=== PATIENT | male | born 1960 | race African-American/Black ===

== ENCOUNTER 2020-12-07 15:59 | Outpatient (CLI) | payer MEDICARE, MEDICAID | END 2020-12-07 16:00 | disposition home or self-care (01) | LOC: CSHWCC 15:59 | PROVIDERS: ATTEND Nurse Practitioner Family | DX: E11.621 Type 2 diabetes mellitus with foot ulcer (principal); L97.516 Non-pressure chronic ulcer of other part of right foot with bone involvement without evidence of necrosis; R60.0 Localized edema; E11.40 Type 2 diabetes mellitus with diabetic neuropathy, unspecified; E78.2 Mixed hyperlipidemia; I10 Essential (primary) hypertension; I70.201 Unspecified atherosclerosis of native arteries of extremities, right leg; I87.2 Venous insufficiency (chronic) (peripheral); M86.672 Other chronic osteomyelitis, left ankle and foot; T81.30XA Disruption of wound, unspecified, initial encounter; Z89.422 Acquired absence of other left toe(s); Z72.0 Tobacco use | CPT/HCPCS: 99213; G0463 ==

== ENCOUNTER 2020-12-09 13:49 | Outpatient (CLI) | payer MEDICARE, MEDICAID | END 2020-12-09 13:50 | disposition home or self-care (01) | LOC: CSHWCC 13:49 | PROVIDERS: ATTEND Nurse Practitioner Family | DX: I87.2 Venous insufficiency (chronic) (peripheral) (principal); T81.30XD Disruption of wound, unspecified, subsequent encounter; T86.821 Skin graft (allograft) (autograft) failure; E11.621 Type 2 diabetes mellitus with foot ulcer; L97.516 Non-pressure chronic ulcer of other part of right foot with bone involvement without evidence of necrosis; R60.0 Localized edema; E11.69 Type 2 diabetes mellitus with other specified complication; E11.40 Type 2 diabetes mellitus with diabetic neuropathy, unspecified; E11.51 Type 2 diabetes mellitus with diabetic peripheral angiopathy without gangrene; E78.2 Mixed hyperlipidemia; I70.201 Unspecified atherosclerosis of native arteries of extremities, right leg; M86.672 Other chronic osteomyelitis, left ankle and foot; Z72.0 Tobacco use; Z89.422 Acquired absence of other left toe(s) | CPT/HCPCS: 29581; 99213; G0463 ==

== ENCOUNTER 2020-12-14 16:34 | Outpatient (CLI) | payer MEDICARE, MEDICAID | END 2020-12-14 16:35 | disposition home or self-care (01) | LOC: CSHWCC 16:34 | PROVIDERS: ATTEND Nurse Practitioner Family | DX: T81.89XD Other complications of procedures, not elsewhere classified, subsequent encounter (principal); K43.2 Incisional hernia without obstruction or gangrene; E55.9 Vitamin D deficiency, unspecified; E66.01 Morbid (severe) obesity due to excess calories; B95.62 Methicillin resistant Staphylococcus aureus infection as the cause of diseases classified elsewhere; I10 Essential (primary) hypertension; M25.50 Pain in unspecified joint; W22.8XXD Striking against or struck by other objects, subsequent encounter; Z87.891 Personal history of nicotine dependence | CPT/HCPCS: 29581; 99213; G0463 ==

== ENCOUNTER 2020-12-17 11:23 | Outpatient (CLI) | payer MEDICARE, MEDICAID | END 2020-12-17 11:24 | disposition home or self-care (01) | LOC: CSHWCC 11:23 | PROVIDERS: ATTEND Nurse Practitioner Family | DX: I87.2 Venous insufficiency (chronic) (peripheral) (principal); E11.621 Type 2 diabetes mellitus with foot ulcer; L97.516 Non-pressure chronic ulcer of other part of right foot with bone involvement without evidence of necrosis; T81.30XD Disruption of wound, unspecified, subsequent encounter; T86.821 Skin graft (allograft) (autograft) failure; E11.40 Type 2 diabetes mellitus with diabetic neuropathy, unspecified; R60.0 Localized edema; E78.2 Mixed hyperlipidemia; I10 Essential (primary) hypertension; I70.201 Unspecified atherosclerosis of native arteries of extremities, right leg; M86.672 Other chronic osteomyelitis, left ankle and foot; Z72.0 Tobacco use; Z89.422 Acquired absence of other left toe(s) ==

== ENCOUNTER 2021-03-08 09:22 | Outpatient (CLI) | payer MEDICARE, MEDICAID | END 2021-03-08 09:23 | disposition home or self-care (01) | LOC: CSHWCC 09:22 | PROVIDERS: ATTEND Nurse Practitioner Family | DX: I87.2 Venous insufficiency (chronic) (peripheral) (principal); E11.621 Type 2 diabetes mellitus with foot ulcer; T86.821 Skin graft (allograft) (autograft) failure; L97.512 Non-pressure chronic ulcer of other part of right foot with fat layer exposed; L97.516 Non-pressure chronic ulcer of other part of right foot with bone involvement without evidence of necrosis; E11.69 Type 2 diabetes mellitus with other specified complication; E11.40 Type 2 diabetes mellitus with diabetic neuropathy, unspecified; E11.51 Type 2 diabetes mellitus with diabetic peripheral angiopathy without gangrene; E78.2 Mixed hyperlipidemia; M86.672 Other chronic osteomyelitis, left ankle and foot; I70.201 Unspecified atherosclerosis of native arteries of extremities, right leg; R60.0 Localized edema; I10 Essential (primary) hypertension; Z72.0 Tobacco use; Z89.422 Acquired absence of other left toe(s) | CPT/HCPCS: 11042; 97139; G0463; 99213 ==

== ENCOUNTER 2021-05-10 08:51 | Outpatient (CLI) | payer MEDICARE, MEDICAID | END 2021-05-10 08:52 | disposition home or self-care (01) | LOC: CSHWCC 08:51 | PROVIDERS: ATTEND Nurse Practitioner Family | DX: E11.621 Type 2 diabetes mellitus with foot ulcer (principal); L97.526 Non-pressure chronic ulcer of other part of left foot with bone involvement without evidence of necrosis | CPT/HCPCS: 82962; 97139; G0277; 36416 ==

== ENCOUNTER 2021-05-18 08:30 | Outpatient (CLI) | payer MEDICARE, MEDICAID | END 2021-05-18 08:31 | disposition home or self-care (01) | LOC: CSHWCC 08:30 | PROVIDERS: ATTEND Nurse Practitioner Family | DX: T86.821 Skin graft (allograft) (autograft) failure (principal); I87.2 Venous insufficiency (chronic) (peripheral); E11.40 Type 2 diabetes mellitus with diabetic neuropathy, unspecified; E11.621 Type 2 diabetes mellitus with foot ulcer; L97.526 Non-pressure chronic ulcer of other part of left foot with bone involvement without evidence of necrosis; L97.519 Non-pressure chronic ulcer of other part of right foot with unspecified severity; E11.51 Type 2 diabetes mellitus with diabetic peripheral angiopathy without gangrene; E11.69 Type 2 diabetes mellitus with other specified complication; I70.201 Unspecified atherosclerosis of native arteries of extremities, right leg; M86.672 Other chronic osteomyelitis, left ankle and foot; M86.8X7 Other osteomyelitis, ankle and foot; R60.0 Localized edema; E78.2 Mixed hyperlipidemia; Z72.0 Tobacco use; Z89.422 Acquired absence of other left toe(s) | CPT/HCPCS: 36416 ==

== ENCOUNTER 2021-06-01 09:24 | Outpatient (CLI) | payer MEDICARE, MEDICAID | END 2021-06-01 09:25 | disposition home or self-care (01) | LOC: CSHWCC 09:24 | PROVIDERS: ATTEND Nurse Practitioner Family | DX: T86.821 Skin graft (allograft) (autograft) failure (principal); E11.40 Type 2 diabetes mellitus with diabetic neuropathy, unspecified; E11.621 Type 2 diabetes mellitus with foot ulcer; L97.526 Non-pressure chronic ulcer of other part of left foot with bone involvement without evidence of necrosis; E78.2 Mixed hyperlipidemia; I10 Essential (primary) hypertension; I70.201 Unspecified atherosclerosis of native arteries of extremities, right leg; I87.2 Venous insufficiency (chronic) (peripheral); M86.672 Other chronic osteomyelitis, left ankle and foot; M86.8X7 Other osteomyelitis, ankle and foot; R60.0 Localized edema; Z72.0 Tobacco use; Z89.422 Acquired absence of other left toe(s) ==

== ENCOUNTER 2021-06-14 08:39 | Outpatient (CLI) | payer MEDICARE, MEDICAID | END 2021-06-14 08:40 | disposition home or self-care (01) | LOC: CSHWCC 08:39 | PROVIDERS: ATTEND Nurse Practitioner Family | DX: T81.89XD Other complications of procedures, not elsewhere classified, subsequent encounter (principal); T86.821 Skin graft (allograft) (autograft) failure; I87.2 Venous insufficiency (chronic) (peripheral); E11.621 Type 2 diabetes mellitus with foot ulcer; L97.526 Non-pressure chronic ulcer of other part of left foot with bone involvement without evidence of necrosis; E11.51 Type 2 diabetes mellitus with diabetic peripheral angiopathy without gangrene; I70.201 Unspecified atherosclerosis of native arteries of extremities, right leg; E11.69 Type 2 diabetes mellitus with other specified complication; M86.672 Other chronic osteomyelitis, left ankle and foot; M86.8X7 Other osteomyelitis, ankle and foot; R60.0 Localized edema; E78.2 Mixed hyperlipidemia; Z72.0 Tobacco use; Z89.422 Acquired absence of other left toe(s) | CPT/HCPCS: 82962; 97139; G0463; 36416; 99213 ==

== ENCOUNTER 2021-06-16 08:32 | Outpatient (CLI) | payer MEDICARE, MEDICAID | END 2021-06-16 08:33 | disposition home or self-care (01) | LOC: CSHWCC 08:32 | PROVIDERS: ATTEND Nurse Practitioner Family | DX: T81.89XD Other complications of procedures, not elsewhere classified, subsequent encounter (principal); T86.821 Skin graft (allograft) (autograft) failure; I87.2 Venous insufficiency (chronic) (peripheral); E11.621 Type 2 diabetes mellitus with foot ulcer; L97.526 Non-pressure chronic ulcer of other part of left foot with bone involvement without evidence of necrosis; E11.51 Type 2 diabetes mellitus with diabetic peripheral angiopathy without gangrene; E11.40 Type 2 diabetes mellitus with diabetic neuropathy, unspecified; I70.201 Unspecified atherosclerosis of native arteries of extremities, right leg; E11.69 Type 2 diabetes mellitus with other specified complication; M86.672 Other chronic osteomyelitis, left ankle and foot; R60.0 Localized edema; E78.2 Mixed hyperlipidemia; I10 Essential (primary) hypertension; Z72.0 Tobacco use; Z89.422 Acquired absence of other left toe(s) | CPT/HCPCS: 97139; G0463; 99213 ==

== ENCOUNTER 2021-06-20 11:12 | Outpatient (CLI) | payer MEDICARE, MEDICAID | END 2021-06-20 11:13 | disposition home or self-care (01) | LOC: CSHWCC 11:12 | PROVIDERS: ATTEND Nurse Practitioner Family | DX: T81.89XD Other complications of procedures, not elsewhere classified, subsequent encounter (principal); T86.821 Skin graft (allograft) (autograft) failure; I87.2 Venous insufficiency (chronic) (peripheral); E11.621 Type 2 diabetes mellitus with foot ulcer; L97.526 Non-pressure chronic ulcer of other part of left foot with bone involvement without evidence of necrosis; E11.51 Type 2 diabetes mellitus with diabetic peripheral angiopathy without gangrene; E11.69 Type 2 diabetes mellitus with other specified complication; E11.40 Type 2 diabetes mellitus with diabetic neuropathy, unspecified; I70.201 Unspecified atherosclerosis of native arteries of extremities, right leg; M86.672 Other chronic osteomyelitis, left ankle and foot; M86.8X7 Other osteomyelitis, ankle and foot; R60.0 Localized edema; E78.2 Mixed hyperlipidemia; I10 Essential (primary) hypertension; Z72.0 Tobacco use; Z89.422 Acquired absence of other left toe(s) | CPT/HCPCS: 11043; 99213; G0463 ==

== ENCOUNTER 2021-06-24 07:59 | Outpatient (CLI) | payer MEDICARE, MEDICAID | END 2021-06-24 08:00 | disposition home or self-care (01) | LOC: CSHWCC 07:59 | PROVIDERS: ATTEND Nurse Practitioner Family | DX: T81.89XD Other complications of procedures, not elsewhere classified, subsequent encounter (principal); T86.821 Skin graft (allograft) (autograft) failure; I87.2 Venous insufficiency (chronic) (peripheral); E11.40 Type 2 diabetes mellitus with diabetic neuropathy, unspecified; E11.51 Type 2 diabetes mellitus with diabetic peripheral angiopathy without gangrene; I70.201 Unspecified atherosclerosis of native arteries of extremities, right leg; R60.0 Localized edema; E11.69 Type 2 diabetes mellitus with other specified complication; M86.672 Other chronic osteomyelitis, left ankle and foot; M86.8X7 Other osteomyelitis, ankle and foot; E78.2 Mixed hyperlipidemia; I10 Essential (primary) hypertension; Z72.0 Tobacco use; Z89.422 Acquired absence of other left toe(s) ==

== ENCOUNTER 2021-06-28 12:04 | Outpatient (CLI) | payer MEDICARE, MEDICAID | END 2021-06-28 12:05 | disposition home or self-care (01) | LOC: CSHWCC 12:04 | PROVIDERS: ATTEND Nurse Practitioner Family | DX: T81.89XD Other complications of procedures, not elsewhere classified, subsequent encounter (principal); T86.821 Skin graft (allograft) (autograft) failure; I87.2 Venous insufficiency (chronic) (peripheral); I70.201 Unspecified atherosclerosis of native arteries of extremities, right leg; E11.51 Type 2 diabetes mellitus with diabetic peripheral angiopathy without gangrene; E11.40 Type 2 diabetes mellitus with diabetic neuropathy, unspecified; E78.2 Mixed hyperlipidemia; I10 Essential (primary) hypertension; M86.672 Other chronic osteomyelitis, left ankle and foot; M86.8X7 Other osteomyelitis, ankle and foot; R60.0 Localized edema; Z72.0 Tobacco use; Z89.422 Acquired absence of other left toe(s) ==

== ENCOUNTER 2021-07-02 15:10 | Inpatient (IN) | payer MEDICARE, MEDICAID ==
[2021-07-02 15:45] LABS: #Eosinphils 0.1 10x3/uL (0.0-0.5); #Monocytes 0.5 10x3/uL (0.0-1.1); %Basophils 0.3 % (0.0-2.0); %Lymphocytes 7.5 % (18.0-47.0); %Monocytes 4.7 % (0.0-10.0); %Neutrophils 86.1 % (40.0-75.0); Hemoglobin 12.3 g/dL (13.5-17.5); Mean Corpuscular HGB CONC 33.7 g/dL (32.0-36.0); Mean Corpuscular Hemoglobin 29.7 pg (27.0-33.0); Mean Corpuscular Volume 88.2 fl (81.2-95.1); Mean Platelet Volume 10.2 fl (7.4-10.4); Platelet Count 278 10x3/uL (150-450); RBC Distribution Width 14.4 % (11.5-14.5); Red Blood Cell (RBC) Count 4.14 10x6/uL (4.32-5.72); White Blood Cell (WBC) Count 10.5 10x3/uL (3.5-10.5)
[2021-07-02 15:57] LABS: ALT (SGPT) 11 U/L (8-55); AST (SGOT) 14 U/L (5-34); Albumin 3.5 g/dL (3.5-5.0); Alkaline Phosphatase 59 U/L (40-110); Anion Gap 15 mmol/L (10-20); BUN (Urea Nitrogen) 10 mg/dL (8.4-25.7); Bilirubin, Total 0.6 mg/dL (0.2-1.2); Calc. Creatinine Clearance 0 mL/min (70-130); Calcium 8.6 mg/dL (7.8-10.44); Carbon Dioxide 22 mmol/L (22-29); Chloride 106 mmol/L (98-107); Globulin 3.6 g/dL (2.4-3.5); Glucose 265 mg/dL (70-105); Lipase 4 U/L (8-78); Protein, Total 7.1 g/dL (6.0-8.3); Sodium 139 mmol/L (136-145)
[2021-07-02 16:18] LABS: CKMB 4.5 ng/mL (0-6.6)
[2021-07-02] MEDS ORDERED: Ondansetron PF 4 MG/2 ML Vial ONE ×2 (17:20→20:26)
[2021-07-02] MEDS ORDERED: Morphine 4 MG/ML VIAL ONE (17:46)
[2021-07-02] MEDS ORDERED: Promethazine HCl 25 MG/ML VIAL ONE (17:47)
[2021-07-02] MEDS ORDERED: Acetaminophen 325 MG TAB PO PRN (19:19)
[2021-07-02] MEDS ORDERED: Calcium Carbonate 500 MG ChewTAB PO PRN (19:19)
[2021-07-02] MEDS ORDERED: HYDROcodone/Acetaminophen 5/325 mg Tablet PO PRN (19:19)
[2021-07-02] MEDS ORDERED: Guaifenesin DM 100-10/5 ML UDCUP PO PRN (19:19)
[2021-07-02] MEDS ORDERED: Dextrose 5% in Water 1,000 ML IV PRN (19:19)
[2021-07-02] MEDS ORDERED: Senokot S 8.6-50 MG TAB PO PRN (19:19)
[2021-07-02] MEDS ORDERED: Nitroglycerin 0.4 MG TAB (25 Tab Bottle) SL PRN (19:19)
[2021-07-02] MEDS ORDERED: Dextrose 50% Abboject 50 ML SYRINGE SLOW IVP PRN (19:19)
[2021-07-02] MEDS ORDERED: HumaLOG 300 UNITS/3 ML VIAL SC PRN (19:19)
[2021-07-02] MEDS ORDERED: Ondansetron PF 4 MG/2 ML Vial IVP PRN (19:19)
[2021-07-02 19:22] LABS: Troponin I 0.038 ng/mL (< 0.028)
[2021-07-02] MEDS ORDERED: Albuterol Sulfate 1.25 MG/3 ML NEB NEB PRN (19:22)
[2021-07-02] MEDS ORDERED: Aspirin 325 MG TAB ONE (19:55)
[2021-07-02] MEDS ORDERED: Dicyclomine 20 MG TAB ONE (20:29)
[2021-07-02] MEDS ORDERED: Atorvastatin Calcium 40 MG TAB PO SCH (21:00)
[2021-07-02] MEDS ORDERED: Lantus 1000 UNITS/10 ML VIAL SC SCH (21:30)
[2021-07-02 21:49] VITALS: BMI 27.2
[2021-07-02] MEDS: Metoclopramide HCl 10 MG/2 ML VIAL IVP SCH (22:28)
[2021-07-02] MEDS: Famotidine/PF 20 mg/2ml Vial SLOW IVP SCH (22:28)
[2021-07-02] MEDS: Cephalexin 500 MG CAP PO SCH (23:30)
[2021-07-02 23:58] LABS: CKMB 3.2 ng/mL (0-6.6)
[2021-07-03] MEDS: Metoclopramide HCl 10 MG/2 ML VIAL IVP SCH (03:42)
[2021-07-03] MEDS ORDERED: Furosemide 20 MG/2 ML VIAL SLOW IVP SCH (04:00)
[2021-07-03 05:13] LABS: Anion Gap 14 mmol/L (10-20); BUN (Urea Nitrogen) 12 mg/dL (8.4-25.7); Calc. Creatinine Clearance 159 mL/min (70-130); Calcium 8.3 mg/dL (7.8-10.44); Carbon Dioxide 23 mmol/L (22-29); Cardiac Risk 3.8 (Less than 4.5); Chloride 113 mmol/L (98-107); Cholesterol 87 mg/dl (< 200 Desired); Glucose 256 mg/dL (70-105); HDL Cholesterol 23 mg/dL (>60 Neg Risk); LDL Cholesterol, Calculated 52 mg/dL; Potassium 4.1 mmol/L (3.5-5.1); Sodium 146 mmol/L (136-145); Triglycerides 62 mg/dL (Less than 150)
[2021-07-03 05:34] LABS: CKMB 2.7 ng/mL (0-6.6)
[2021-07-03] MEDS: Cephalexin 500 MG CAP PO SCH ×4 (05:59→23:40)
[2021-07-03 08:12] LABS: Bilirubin Neg (Negative); Blood, Urine Negative (Negative); Clarity Clear (Clear); Glucose, Urine (Dipstick) 250 mg/dL (Negative); Ketone, Urine 50 mg/dL (Negative); Leukocyte Negative (Negative); Nitrite Negative (Negative); Protein, Urine (Dipstick) 15 mg/dl (Neg-Trace); Urobilinogen Normal mg/dL (Less than 2)
[2021-07-03 08:22] LABS: Amphetamine Not Detected (NotDetected); Barbiturates Screen Not Detected (NotDetected); Benzodiazepine Screen Not Detected (NotDetected); Cocaine Metabolite Screen Not Detected (NotDetected); Methadone Not Detected (NotDetected); Methamphetamine Not Detected (NotDetected); Opiate Screen Detected (NotDetected); Oxycodone Screen Not Detected (NotDetected); Phencyclidine (PCP) Not Detected (NotDetected); THC/Cannabinoid Screen Detected (NotDetected); Tricyclic Screen Not Detected (NotDetected)
[2021-07-03 08:25] LABS: Bacteria/HPF Rare-Few HPF (None Seen); RBC/HPF 0-3 HPF (0-3); Squamous Epithelial 0-3 HPF (0-3); WBC/HPF 0-3 HPF (0-3)
[2021-07-03 08:26] LABS: Trichomonas/HPF Rare HPF (None Seen)
[2021-07-03] MEDS ORDERED: Lisinopril 5 MG TAB PO SCH ×2 (09:00)
[2021-07-03] MEDS: Carvedilol 3.125 MG TAB PO SCH ×2 (09:00→19:00)
[2021-07-03] MEDS: Citalopram 20 MG TAB PO SCH (09:01)
[2021-07-03] MEDS: Amlodipine 10 MG TAB PO SCH (09:01)
[2021-07-03] MEDS: Aspirin 81 mg Enteric Coated Tablet PO SCH (09:02)
[2021-07-03] MEDS: Clopidogrel Bisulfate 75 MG TAB PO SCH (09:02)
[2021-07-03] MEDS: Enoxaparin Sodium 40 MG/0.4 ML SYRINGE SC SCH (09:03)
[2021-07-03] MEDS: Famotidine/PF 20 mg/2ml Vial SLOW IVP SCH ×2 (09:03→22:35)
[2021-07-03] MEDS: Furosemide 20 MG TAB PO SCH (09:11)
[2021-07-03] MEDS: Lantus 1000 UNITS/10 ML VIAL SC SCH ×2 (09:11→23:13)
[2021-07-03] MEDS: glipiZIDE 5 MG TAB PO SCH (09:13)
[2021-07-03 10:02] LABS: Troponin I 0.068 ng/mL (< 0.028)
[2021-07-03] MEDS ORDERED: Lidocaine 1% (PF) 30 ML VIAL ONE (17:21)
[2021-07-03] MEDS ORDERED: Nitroglycerin 50 MG/250 ML BOT 250 ML ONE (17:21)
[2021-07-03] MEDS ORDERED: Adenosine 6 MG/2 ML VIAL ONE (17:21)
[2021-07-03] MEDS ORDERED: Heparin 10,000 UNITS/ 10 ML VIAL ONE (17:21)
[2021-07-03] MEDS ORDERED: Fentanyl 100 MCG/2 ML VIAL ONE (17:46)
[2021-07-03] MEDS ORDERED: Midazolam HCl 2 mg/2 ml Vial ONE (17:47)
[2021-07-03] MEDS ORDERED: Sodium Chloride 0.9% 200 ML IV PRN (18:39)
[2021-07-03] MEDS ORDERED: Nitroglycerin 0.4 MG TAB (25 Tab Bottle) SL PRN (18:39)
[2021-07-03] MEDS ORDERED: Atorvastatin Calcium 40 MG TAB PO SCH (21:00)
[2021-07-04 05:08] LABS: #Basophils 0.1 10x3/uL (0.0-0.2); #Eosinphils 0.2 10x3/uL (0.0-0.5); #Neutrophils 5.5 10x3/uL (1.5-8.4); %Basophils 0.7 % (0.0-2.0); %Eosinophils 2.8 % (0.0-6.0); %Lymphocytes 17.7 % (18.0-47.0); %Monocytes 12.4 % (0.0-10.0); %Neutrophils 66.2 % (40.0-75.0); Mean Corpuscular HGB CONC 33.3 g/dL (32.0-36.0); Mean Corpuscular Hemoglobin 29.4 pg (27.0-33.0); Mean Corpuscular Volume 88.2 fl (81.2-95.1); Platelet Count 262 10x3/uL (150-450); RBC Distribution Width 14.5 % (11.5-14.5); Red Blood Cell (RBC) Count 4.08 10x6/uL (4.32-5.72); White Blood Cell (WBC) Count 8.3 10x3/uL (3.5-10.5)
[2021-07-04 05:22] LABS: Anion Gap 13 mmol/L (10-20); BUN (Urea Nitrogen) 12 mg/dL (8.4-25.7); Calc. Creatinine Clearance 170 mL/min (70-130); Calcium 8.6 mg/dL (7.8-10.44); Carbon Dioxide 23 mmol/L (22-29); Chloride 104 mmol/L (98-107); Glucose 117 mg/dL (70-105); Potassium 3.2 mmol/L (3.5-5.1); Sodium 137 mmol/L (136-145)
[2021-07-04] MEDS: Cephalexin 500 MG CAP PO SCH ×2 (05:43→12:55)
[2021-07-04] MEDS ORDERED: Empagliflozin 10 MG TAB PO SCH (09:00)
[2021-07-04] MEDS: Enoxaparin Sodium 40 MG/0.4 ML SYRINGE SC SCH (10:51)
[2021-07-04] MEDS: Carvedilol 3.125 MG TAB PO SCH (10:52)
[2021-07-04] MEDS: Furosemide 20 MG TAB PO SCH (10:52)
[2021-07-04] MEDS: Clopidogrel Bisulfate 75 MG TAB PO SCH (10:52)
[2021-07-04] MEDS: glipiZIDE 5 MG TAB PO SCH (10:52)
[2021-07-04] MEDS: Amlodipine 10 MG TAB PO SCH (10:53)
[2021-07-04] MEDS: Citalopram 20 MG TAB PO SCH (10:53)
[2021-07-04] MEDS: Famotidine/PF 20 mg/2ml Vial SLOW IVP SCH (10:53)
[2021-07-04] MEDS: Lantus 1000 UNITS/10 ML VIAL SC SCH (10:55)
[2021-07-04 11:40] LABS: SARS-CoV-2 PCR by NAA Not Detected (NotDetected)
[2021-07-04] MEDS: Aspirin 81 mg Enteric Coated Tablet PO SCH (12:55)
[2021-07-04 16:44] VITALS: BP 165/85; TEMP 96.5
== END 2021-07-04 17:12 | disposition home or self-care (01) | DRG 286 ==
LOC: CSHERS 15:10 → CSHTELE 21:08 → OBSVTOIN 07-04 15:01
PROVIDERS: ADMIT Student in an Organized Health Care Education/Training Program; ATTEND Student in an Organized Health Care Education/Training Program
PROC: 4A023N7 Measurement of Cardiac Sampling and Pressure, Left Heart, Percutaneous Approach (ICD-10-PCS; principal; 2021-07-03)
PROC: B2111ZZ Fluoroscopy of Multiple Coronary Arteries using Low Osmolar Contrast (ICD-10-PCS; 2021-07-03)
PROC: B2151ZZ Fluoroscopy of Left Heart using Low Osmolar Contrast (ICD-10-PCS; 2021-07-03)
PROC: B2131ZZ Fluoroscopy of Multiple Coronary Artery Bypass Grafts using Low Osmolar Contrast (ICD-10-PCS; 2021-07-03)
PROC: B2181ZZ Fluoroscopy of Left Internal Mammary Bypass Graft using Low Osmolar Contrast (ICD-10-PCS; 2021-07-03)
DX: I25.10 Atherosclerotic heart disease of native coronary artery without angina pectoris (principal); I50.33 Acute on chronic diastolic (congestive) heart failure; M86.9 Osteomyelitis, unspecified; I11.0 Hypertensive heart disease with heart failure; I25.5 Ischemic cardiomyopathy; E11.9 Type 2 diabetes mellitus without complications; F17.210 Nicotine dependence, cigarettes, uncomplicated; E78.2 Mixed hyperlipidemia; Z95.1 Presence of aortocoronary bypass graft; Z95.5 Presence of coronary angioplasty implant and graft; Z91.040 Latex allergy status; Z79.02 Long term (current) use of antithrombotics/antiplatelets; Z79.4 Long term (current) use of insulin; Z79.82 Long term (current) use of aspirin; Z79.899 Other long term (current) drug therapy; Z95.810 Presence of automatic (implantable) cardiac defibrillator
CPT/HCPCS: 36415; 36416; 71045; 74177; 80048; 80053; 80061; 80306; 81001; 82553; 83690; 84484; 85025; 93005; 93010; 93459; 96372; 96374; 96375; 96376; 99152; C1760; G0378; J0153; J1644; J1650; J1815; J1940; J1956; J2001; J2250; J2270; J2405; J2550; J2765; J3010; S0028; U0003; U0005

== ENCOUNTER 2021-07-06 09:42 | Outpatient (CLI) | payer MEDICARE, MEDICAID | END 2021-07-06 09:43 | disposition home or self-care (01) | LOC: CSHWCC 09:42 | PROVIDERS: ATTEND Nurse Practitioner Family | DX: T81.89XD Other complications of procedures, not elsewhere classified, subsequent encounter (principal); E11.40 Type 2 diabetes mellitus with diabetic neuropathy, unspecified; E78.2 Mixed hyperlipidemia; I10 Essential (primary) hypertension; I70.201 Unspecified atherosclerosis of native arteries of extremities, right leg; I87.2 Venous insufficiency (chronic) (peripheral); M86.672 Other chronic osteomyelitis, left ankle and foot; M86.8X7 Other osteomyelitis, ankle and foot; R60.0 Localized edema; T86.821 Skin graft (allograft) (autograft) failure; Z72.0 Tobacco use; Z89.422 Acquired absence of other left toe(s) ==

== ENCOUNTER 2021-07-08 10:09 | Outpatient (CLI) | payer MEDICARE, MEDICAID | END 2021-07-08 10:10 | disposition home or self-care (01) | LOC: CSHWCC 10:09 | PROVIDERS: ATTEND Nurse Practitioner Family | DX: T81.89XD Other complications of procedures, not elsewhere classified, subsequent encounter (principal); R60.0 Localized edema; E11.40 Type 2 diabetes mellitus with diabetic neuropathy, unspecified; E78.2 Mixed hyperlipidemia; I10 Essential (primary) hypertension; I70.201 Unspecified atherosclerosis of native arteries of extremities, right leg; I87.2 Venous insufficiency (chronic) (peripheral); M86.672 Other chronic osteomyelitis, left ankle and foot; M86.8X7 Other osteomyelitis, ankle and foot; T86.821 Skin graft (allograft) (autograft) failure; Z72.0 Tobacco use; Z89.422 Acquired absence of other left toe(s) | CPT/HCPCS: 97607; 99213; G0463 ==

== ENCOUNTER 2021-07-11 08:26 | Outpatient (CLI) | payer MEDICARE, MEDICAID | END 2021-07-11 08:27 | disposition home or self-care (01) | LOC: CSHWCC 08:26 | PROVIDERS: ATTEND Nurse Practitioner Family | DX: T81.89XD Other complications of procedures, not elsewhere classified, subsequent encounter (principal); R60.0 Localized edema; T86.821 Skin graft (allograft) (autograft) failure; E11.40 Type 2 diabetes mellitus with diabetic neuropathy, unspecified; E78.2 Mixed hyperlipidemia; I10 Essential (primary) hypertension; I70.201 Unspecified atherosclerosis of native arteries of extremities, right leg; I87.2 Venous insufficiency (chronic) (peripheral); M86.672 Other chronic osteomyelitis, left ankle and foot; M86.8X7 Other osteomyelitis, ankle and foot; Z72.0 Tobacco use; Z89.422 Acquired absence of other left toe(s) | CPT/HCPCS: 11043; 36416; 97605; 99213; G0463 ==